=== PATIENT | male | born 1990 | race Caucasian/White ===

== ENCOUNTER 2016-04-29 17:38 | Emergency (ER) | payer MEDICAID ==
[~2016-04-29] VITALS: Ht 165.1 cm; Wt 68.2 kg
[~2016-04-29 17:38] MED LIST: QUET50TA5 PO
[2016-04-29 17:43] VITALS: BP 155/77
[2016-04-29] MEDS ORDERED: OLAN10TA3 PO (18:05)
[2016-04-29] MEDS ORDERED: KETOROLAC 30 MG/1 ML ONE (18:29)
[2016-04-29] MEDS ORDERED: KETOROLAC 30 MG/1 ML IM ONE (18:30)
[2016-04-29 18:51] LABS: HEMOGLOBIN 15.3 g/dL (13.7-18.0)
[2016-04-29 19:03] LABS: BLOOD UREA NITROGEN 11 mg/dL (7-18)
[2016-04-29 19:07] LABS: ASPARTATE AMINO TRANSFERASE 18 U/L (15-37)
[2016-04-29 19:08] LABS: ACETAMINOPHEN < 2 mcg/mL (10-30)
== END 2016-04-29 20:17 | disposition home or self-care (01) ==
LOC: ED 19:52
DX: G44.219 Episodic tension-type headache, not intractable (principal); F20.9 Schizophrenia, unspecified; Z79.899 Other long term (current) drug therapy
CPT/HCPCS: 36415; 70450; 80053; 80307; 80329; 85025; G0480

== ENCOUNTER 2016-06-18 19:54 | Emergency (ER) | payer MEDICAID ==
[~2016-06-18] VITALS: Ht 165.1 cm; Wt 70.5 kg
[~2016-06-18 19:54] MED LIST changes: +OLAN10TA3 PO
[2016-06-18 20:44] LABS: DAU SCREEN DISCLAIMER
[2016-06-18 20:46] LABS: BLOOD UREA NITROGEN 10 mg/dL (7-18)
[2016-06-18 20:48] LABS: ACETAMINOPHEN < 2 mcg/mL (10-30)
[2016-06-18 22:20] VITALS: BP 128/81
== END 2016-06-18 22:25 | disposition home or self-care (01) ==
LOC: ED 22:19
DX: F20.0 Paranoid schizophrenia (principal)
CPT/HCPCS: 36415; 80048; 80307; 80329; 82040; 85025; 99284; G0480

== ENCOUNTER 2016-06-26 09:46 | Observation (INO) | payer MEDICARE, MEDICAID ==
[~2016-06-26] VITALS: Ht 165.1 cm; Wt 69.0 kg
[2016-06-26] MEDS ORDERED: LORazepam 1MG TABLET PO ONE (10:30)
[2016-06-26] MEDS ORDERED: ZIPRASIDONE 20 MG INJ IM ONE (10:30)
[2016-06-26] MEDS ORDERED: LORazepam 1MG TABLET ONE (10:35)
[2016-06-26 10:55] LABS: DAU SCREEN DISCLAIMER
[2016-06-26 11:02] LABS: BLOOD UREA NITROGEN 10 mg/dL (7-18)
[2016-06-26 11:07] LABS: ACETAMINOPHEN < 2 mcg/mL (10-30); ASPARTATE AMINO TRANSFERASE 25 U/L (15-37)
[2016-06-26] MEDS ORDERED: ZIPRASIDONE 20MG CAPSULE ONE (11:11)
[2016-06-26] MEDS ORDERED: HALOPERIDOL 5 MG TABLET PO PRN (12:30)
[2016-06-26] MEDS ORDERED: BENZTROPINE 1 MG TABLET PO PRN (12:30)
[2016-06-26] MEDS ORDERED: HALOPERIDOL 5 MG/ML IM PRN (12:30)
[2016-06-26] MEDS ORDERED: LORazepam 2 MG/ML, 1ML IM PRN (12:30)
[2016-06-26] MEDS ORDERED: LORazepam 1MG TABLET PO PRN (12:30)
[2016-06-26] MEDS ORDERED: ZIPRASIDONE 20 MG INJ IM PRN (12:30)
[2016-06-26 19:46] VITALS: BP 122/64
[2016-06-27 08:02] VITALS: BP 106/69
[2016-06-27 20:00] VITALS: BP 99/64
[2016-06-27] MEDS: ZIPRASIDONE 20MG CAPSULE PO PRN (21:39)
[2016-06-28 07:41] VITALS: BP 100/66
[2016-06-28 19:24] VITALS: BP 134/89
[2016-06-29] MEDS: ZIPRASIDONE 20MG CAPSULE PO PRN ×2 (02:10→21:21)
[2016-06-29 07:39] VITALS: BP 120/65
[2016-06-29 19:46] VITALS: BP 100/65
[2016-06-30 08:07] VITALS: BP 105/72
== END 2016-06-30 16:29 | disposition home or self-care (01) ==
LOC: ED 10:30 → INTOOBSV 11:25 → EDIP 11:25 → 3E 17:26
PROVIDERS: ADMIT Internal Medicine; ATTEND Internal Medicine
DX: R45.851 Suicidal ideations (principal); F20.9 Schizophrenia, unspecified; F23 Brief psychotic disorder; F41.9 Anxiety disorder, unspecified; Z87.891 Personal history of nicotine dependence; Z91.14 Patient's other noncompliance with medication regimen
CPT/HCPCS: 36415; 80053; 80307; 80329; 85025; 99285; G0378; G0480

== ENCOUNTER 2016-07-01 15:27 | Observation (INO) | payer MEDICARE, MEDICAID ==
[~2016-07-01] VITALS: Ht 167.6 cm; Wt 70.9 kg
[2016-07-01 16:26] LABS: DAU SCREEN DISCLAIMER
[2016-07-01 19:18] LABS: BLOOD UREA NITROGEN 8 mg/dL (7-18)
[2016-07-01 19:40] LABS: ACETAMINOPHEN < 2 mcg/mL (10-30)
[2016-07-01] MEDS ORDERED: DIPHENHYDRAMINE 50 MG CAPSULE PO PRN (21:00)
[2016-07-01] MEDS ORDERED: ZIPRASIDONE 20 MG INJ IM PRN (21:00)
[2016-07-01] MEDS ORDERED: LORazepam 1MG TABLET PO PRN (21:00)
[2016-07-01] MEDS ORDERED: ONDANSETRON ODT 4 MG PO PRN (21:00)
[2016-07-01] MEDS ORDERED: QUETIAPINE 25MG TABLET PO SCH (21:00)
[2016-07-01] MEDS ORDERED: BENZTROPINE 1 MG TABLET PO PRN (21:00)
[2016-07-01] MEDS ORDERED: POLYETHYLENE GLYCOL 17 GM PACKET PO PRN (21:00)
[2016-07-01 21:18] VITALS: BP 155/76
[2016-07-01] MEDS: TEMAZEPAM 15 MG CAPSULE PO PRN (21:30)
[2016-07-01] MEDS: QUETIAPINE 25MG TABLET PO SCH (21:33)
[2016-07-01] MEDS: NICOTINE 14MG/24 HR PATCH.TD24 TD SCH (21:54)
[2016-07-02 07:44] VITALS: BP 105/68
[2016-07-02] MEDS: QUETIAPINE 25MG TABLET PO SCH ×2 (08:51→20:02)
[2016-07-02] MEDS ORDERED: SENNA/DOCUSATE TABLET PO SCH (09:00)
[2016-07-02] MEDS ORDERED: QUET25TA PO (15:48)
[2016-07-02 19:22] VITALS: BP 116/70
[2016-07-02] MEDS: NICOTINE 14MG/24 HR PATCH.TD24 TD SCH (20:01)
[2016-07-03 08:12] VITALS: BP 95/58
[2016-07-03] MEDS: SENNA/DOCUSATE TABLET PO SCH (09:20)
[2016-07-03] MEDS: QUETIAPINE 25MG TABLET PO SCH ×2 (09:21→20:57)
[2016-07-03 19:42] VITALS: BP 109/67
[2016-07-03] MEDS: RISPERIDONE 2 MG TABLET PO SCH (20:57)
[2016-07-03] MEDS: NICOTINE 14MG/24 HR PATCH.TD24 TD SCH (20:59)
[2016-07-03] MEDS: TEMAZEPAM 15 MG CAPSULE PO PRN (23:29)
[2016-07-04 08:00] VITALS: BP 108/68
[2016-07-04] MEDS: SENNA/DOCUSATE TABLET PO SCH (09:00)
[2016-07-04] MEDS: QUETIAPINE 25MG TABLET PO SCH ×2 (10:05→20:36)
[2016-07-04 19:39] VITALS: BP 95/60
[2016-07-04] MEDS: RISPERIDONE 2 MG TABLET PO SCH (20:36)
[2016-07-04] MEDS: NICOTINE 14MG/24 HR PATCH.TD24 TD SCH (21:31)
[2016-07-04] MEDS: TEMAZEPAM 15 MG CAPSULE PO PRN (22:57)
[2016-07-05 07:28] VITALS: BP 105/67
[2016-07-05] MEDS: QUETIAPINE 25MG TABLET PO SCH ×2 (09:23→20:38)
[2016-07-05] MEDS: SENNA/DOCUSATE TABLET PO SCH (09:24)
[2016-07-05 20:00] VITALS: BP 100/65
[2016-07-05] MEDS: RISPERIDONE 2 MG TABLET PO SCH (20:38)
[2016-07-05] MEDS: NICOTINE 14MG/24 HR PATCH.TD24 TD SCH (21:15)
[2016-07-06] MEDS: TEMAZEPAM 15 MG CAPSULE PO PRN (03:02)
[2016-07-06 07:47] VITALS: BP 122/80
[2016-07-06] MEDS: SENNA/DOCUSATE TABLET PO SCH (08:35)
[2016-07-06] MEDS: QUETIAPINE 25MG TABLET PO SCH ×2 (08:35→20:24)
[2016-07-06 19:50] VITALS: BP 105/64
[2016-07-06] MEDS: RISPERIDONE 2 MG TABLET PO SCH (20:24)
[2016-07-06] MEDS: NICOTINE 14MG/24 HR PATCH.TD24 TD SCH (20:26)
[2016-07-07] MEDS: TEMAZEPAM 15 MG CAPSULE PO PRN (00:39)
[2016-07-07 07:47] VITALS: BP 118/74
[2016-07-07] MEDS: SENNA/DOCUSATE TABLET PO SCH (08:31)
[2016-07-07] MEDS: QUETIAPINE 25MG TABLET PO SCH ×2 (08:32→20:16)
[2016-07-07 19:13] VITALS: BP 120/72
[2016-07-07] MEDS: RISPERIDONE 2 MG TABLET PO SCH (20:16)
[2016-07-07] MEDS: NICOTINE 14MG/24 HR PATCH.TD24 TD SCH (21:00)
== END 2016-07-07 21:30 ==
LOC: ED 16:25 → EDIP 20:08 → 3E 21:11
PROVIDERS: ADMIT Internal Medicine; ATTEND Internal Medicine
DX: F23 Brief psychotic disorder (principal); R45.851 Suicidal ideations; F20.9 Schizophrenia, unspecified; R44.0 Auditory hallucinations; Z91.19 Patient's noncompliance with other medical treatment and regimen
CPT/HCPCS: 36415; 80048; 80307; 80329; 82040; 85025; 99285; G0378; G0480

== ENCOUNTER 2016-07-16 03:47 | Emergency (ER) | payer MEDICARE, MEDICAID ==
[~2016-07-16] VITALS: Ht 165.1 cm; Wt 71.4 kg
[~2016-07-16 03:47] MED LIST changes: +QUET25TA PO
[2016-07-16 03:49] VITALS: BP 130/79
[2016-07-16] MEDS ORDERED: GEODON (05:05)
[2016-07-16 05:29] LABS: BLOOD UREA NITROGEN 11 mg/dL (7-18)
[2016-07-16 05:30] LABS: ACETAMINOPHEN < 2 mcg/mL (10-30)
[2016-07-16 06:36] LABS: DAU SCREEN DISCLAIMER
== END 2016-07-16 10:46 | disposition home or self-care (01) ==
LOC: ED 04:15
DX: F20.9 Schizophrenia, unspecified (principal)
CPT/HCPCS: 36415; 80048; 80307; 80329; 82040; 85025; 99284; G0480

== ENCOUNTER 2016-07-16 12:05 | Emergency (ER) | payer MEDICARE, MEDICAID ==
[~2016-07-16] VITALS: Ht 165.1 cm; Wt 71.0 kg
[~2016-07-16 12:05] MED LIST changes: +GEODON
[2016-07-16 12:07] VITALS: BP 122/81
[2016-07-16] MEDS ORDERED: QUETIAPINE 100MG TABLET PO ONE (12:30)
== END 2016-07-16 14:44 | disposition home or self-care (01) ==
LOC: ED 14:14
DX: F20.0 Paranoid schizophrenia (principal); R45.851 Suicidal ideations
CPT/HCPCS: 99284

== ENCOUNTER 2016-07-26 12:49 | Emergency (ER) | payer MEDICARE, MEDICAID ==
[~2016-07-26] VITALS: Ht 165.1 cm; Wt 70.4 kg
[2016-07-26 12:51] VITALS: BP 127/77
[2016-07-26 13:43] LABS: DAU SCREEN DISCLAIMER
[2016-07-26 14:14] LABS: ASPARTATE AMINO TRANSFERASE 35 U/L (15-37); BLOOD UREA NITROGEN 8 mg/dL (7-18)
[2016-07-26 14:21] LABS: ACETAMINOPHEN < 2 mcg/mL (10-30)
== END 2016-07-26 14:18 | disposition left against medical advice (07) ==
LOC: ED 14:12
DX: F20.9 Schizophrenia, unspecified (principal); R44.0 Auditory hallucinations
CPT/HCPCS: 36415; 80053; 80307; 80329; 85025; 99284; G0480

== ENCOUNTER 2016-09-29 07:02 | Emergency (ER) | payer MEDICARE, MEDICAID ==
[~2016-09-29] VITALS: Ht 165.1 cm; Wt 65.2 kg
[2016-09-29 07:03] VITALS: BP 134/83
[2016-09-29] MEDS ORDERED: ZIPRASIDONE 20 MG INJ IM ONE ×2 (07:46→08:00)
[2016-09-29 07:49] LABS: HEMATOCRIT 44.6 % (39.2-51.8); HEMOGLOBIN 15.1 g/dL (13.7-18.0); WHITE BLOOD COUNT 8.8 x10^3/uL (3.4-10)
[2016-09-29 07:59] LABS: ACETAMINOPHEN < 2 mcg/mL (10-30); ASPARTATE AMINO TRANSFERASE 13 U/L (15-37); BLOOD UREA NITROGEN 7 mg/dL (7-18)
[2016-09-29 08:43] LABS: DAU SCREEN DISCLAIMER
[2016-09-29] MEDS ORDERED: ZIPRASIDONE 20MG CAPSULE ONE (08:58)
[2016-09-29] MEDS ORDERED: ZIPRASIDONE 20MG CAPSULE PO ONE (09:00)
== END 2016-09-29 10:06 | disposition home or self-care (01) ==
LOC: ED 07:27
DX: F20.1 Disorganized schizophrenia (principal); F15.151 Other stimulant abuse with stimulant-induced psychotic disorder with hallucinations; Z72.89 Other problems related to lifestyle
CPT/HCPCS: 36415; 80053; 80307; 80329; 85025; 99284; G0480

== ENCOUNTER 2016-09-29 12:05 | Emergency (ER) | payer MEDICARE, MEDICAID ==
[~2016-09-29] VITALS: Ht 165.1 cm; Wt 65.9 kg
[2016-09-29 12:10] VITALS: BP 119/78
== END 2016-09-29 12:32 | disposition left against medical advice (07) ==
LOC: ED 12:26
DX: Z53.21 Procedure and treatment not carried out due to patient leaving prior to being seen by health care provider (principal)

== ENCOUNTER 2016-10-06 14:26 | Emergency (ER) | payer MEDICARE, MEDICAID ==
[~2016-10-06] VITALS: Ht 162.6 cm; Wt 64.9 kg
[2016-10-06 14:28] VITALS: BP 116/76
[2016-10-06 15:36] LABS: HEMATOCRIT 44.8 % (39.2-51.8); WHITE BLOOD COUNT 7.3 x10^3/uL (3.4-10)
[2016-10-06 15:42] LABS: DAU SCREEN DISCLAIMER
[2016-10-06 15:45] LABS: BLOOD UREA NITROGEN 13 mg/dL (7-18)
[2016-10-06 15:48] LABS: ASPARTATE AMINO TRANSFERASE 10 U/L (15-37)
[2016-10-06 15:49] LABS: ACETAMINOPHEN < 2 mcg/mL (10-30)
== END 2016-10-06 17:39 | disposition home or self-care (01) ==
LOC: ED 15:41
DX: F20.1 Disorganized schizophrenia (principal); F15.151 Other stimulant abuse with stimulant-induced psychotic disorder with hallucinations
CPT/HCPCS: 36415; 80053; 80307; 80329; 85025; 99284; G0480

== ENCOUNTER 2016-11-21 02:10 | Emergency (ER) | payer MEDICARE, MEDICAID ==
[~2016-11-21] VITALS: Ht 160 cm; Wt 60.0 kg
[2016-11-21 02:40] LABS: HEMATOCRIT 41.9 % (39.2-51.8); HEMOGLOBIN 14.2 g/dL (13.7-18.0); WHITE BLOOD COUNT 6.4 x10^3/uL (3.4-10)
[2016-11-21 02:44] VITALS: BP 146/91
[2016-11-21 02:49] LABS: ACETAMINOPHEN < 2 mcg/mL (10-30); BLOOD UREA NITROGEN 4 mg/dL (7-18)
[2016-11-21 07:22] LABS: DAU SCREEN DISCLAIMER
== END 2016-11-21 08:40 | disposition home or self-care (01) ==
LOC: ED 02:55
DX: F29 Unspecified psychosis not due to a substance or known physiological condition (principal); F20.0 Paranoid schizophrenia; F17.200 Nicotine dependence, unspecified, uncomplicated
CPT/HCPCS: 36415; 80048; 80307; 80329; 82040; 85025; 99284; G0479; G0480

== ENCOUNTER 2016-12-03 02:45 | Emergency (ER) | payer MEDICARE, MEDICAID ==
[~2016-12-03] VITALS: Ht 165.1 cm; Wt 60.4 kg
[2016-12-03 02:46] VITALS: BP 140/91
== END 2016-12-03 03:08 | disposition left against medical advice (07) ==
LOC: ED 02:47
DX: R42 Dizziness and giddiness (principal); Z53.21 Procedure and treatment not carried out due to patient leaving prior to being seen by health care provider

== ENCOUNTER 2016-12-04 16:12 | Emergency (ER) | payer MEDICARE, MEDICAID ==
[~2016-12-04] VITALS: Ht 165.1 cm; Wt 68.2 kg
[2016-12-04 16:17] VITALS: BP 151/83
[2016-12-04 16:42] LABS: HEMATOCRIT 42.6 % (39.2-51.8); HEMOGLOBIN 14.5 g/dL (13.7-18.0); WHITE BLOOD COUNT 5.2 x10^3/uL (3.4-10)
[2016-12-04 16:48] LABS: BLOOD UREA NITROGEN 4 mg/dL (7-18)
== END 2016-12-04 17:39 | disposition home or self-care (01) ==
LOC: ED 16:34
DX: E86.0 Dehydration (principal); F20.9 Schizophrenia, unspecified
CPT/HCPCS: 36415; 71010; 80048; 82040; 85025; 93005; 99285

== ENCOUNTER 2016-12-05 04:19 | Emergency (ER) | payer MEDICARE, MEDICAID ==
[~2016-12-05] VITALS: Ht 165.1 cm; Wt 60.7 kg
[2016-12-05 04:20] VITALS: BP 126/85
[2016-12-05] MEDS ORDERED: QUETIAPINE 100MG TABLET PO ONE (05:30)
[2016-12-05 06:01] LABS: BLOOD UREA NITROGEN 4 mg/dL (7-18)
[2016-12-05 06:05] LABS: ACETAMINOPHEN < 2 mcg/mL (10-30)
[2016-12-05 06:08] LABS: HEMATOCRIT 42.2 % (39.2-51.8); HEMOGLOBIN 14.4 g/dL (13.7-18.0); WHITE BLOOD COUNT 8.3 x10^3/uL (3.4-10)
== END 2016-12-05 08:48 | disposition home or self-care (01) ==
LOC: ED 05:21
DX: F20.9 Schizophrenia, unspecified (principal); F33.9 Major depressive disorder, recurrent, unspecified
CPT/HCPCS: 36415; 80048; 80307; 80329; 82040; 85025; 93005; 99285; G0479; G0480

== ENCOUNTER 2017-01-20 14:55 | Emergency (ER) | payer MEDICARE, MEDICAID ==
[~2017-01-20] VITALS: Ht 165.1 cm; Wt 60.9 kg
[2017-01-20 15:46] LABS: HEMATOCRIT 43.1 % (39.2-51.8); HEMOGLOBIN 14.6 g/dL (13.7-18.0); WHITE BLOOD COUNT 10.1 x10^3/uL (3.4-10)
[2017-01-20 15:54] LABS: BLOOD UREA NITROGEN 11 mg/dL (7-18)
[2017-01-20] MEDS ORDERED: ONDANSETRON ODT 4 MG PO ONE (16:30)
[2017-01-20] MEDS ORDERED: ONDANSETRON ODT 4 MG ONE (16:30)
[2017-01-20 16:46] VITALS: BP 105/66
== END 2017-01-20 17:10 | disposition home or self-care (01) ==
LOC: ED 16:12
DX: R05 Cough (principal); R42 Dizziness and giddiness; R09.81 Nasal congestion; F17.210 Nicotine dependence, cigarettes, uncomplicated; F20.9 Schizophrenia, unspecified; F32.9 Major depressive disorder, single episode, unspecified; Z59.0 Homelessness
CPT/HCPCS: 36415; 71020; 80048; 82040; 85025; 93005; 99285

== ENCOUNTER 2017-01-23 04:21 | Emergency (ER) | payer MEDICARE, MEDICAID ==
[~2017-01-23] VITALS: Ht 165.1 cm; Wt 59.9 kg
[2017-01-23 04:23] VITALS: BP 131/88
== END 2017-01-23 04:49 | disposition left against medical advice (07) ==
LOC: ED 04:43
DX: R10.9 Unspecified abdominal pain (principal); Z53.21 Procedure and treatment not carried out due to patient leaving prior to being seen by health care provider

== ENCOUNTER 2017-02-09 19:20 | Emergency (ER) | payer MEDICARE, MEDICAID ==
[~2017-02-09] VITALS: Ht 172.7 cm; Wt 58.9 kg
[2017-02-09 19:21] VITALS: BP 117/77
[2017-02-09 19:56] LABS: BASOPHILS # (AUTO) 0.03 x10^3/uL (0-0.1); BASOPHILS % (AUTO) 0 % (0-1); EOSINOPHILS # (AUTO) 0.41 x10^3/uL (0-0.4); EOSINOPHILS % (AUTO) 3 % (1-7); LYMPHOCYTES # (AUTO) 2.01 x10^3/uL (1-3.4); LYMPHOCYTES % (AUTO) 14 % (22-44); MD NO; MEAN CORPUSCULAR HGB CONC 34.2 g/dL (33.2-36.2); MEAN CORPUSCULAR VOLUME 90.7 fL (81-97); MEAN PLATELET VOLUME 7.8 fL (7.4-10.4); MONOCYTES # (AUTO) 0.81 x10^3/uL (0.2-0.8); MONOCYTES % (AUTO) 6 % (2-9); NEUTROPHILS # (AUTO) 11.33 x10^3/uL (1.8-6.8); NEUTROPHILS % (AUTO) 78 % (42-75); PLATELET COUNT 264 x10^3/uL (130-400); RED BLOOD COUNT 4.65 x10^6/uL (4.38-5.82); RED CELL DISTRIBUTION WIDTH 13.3 % (9.4-14.8)
[2017-02-09 20:07] LABS: ALBUMIN 3.7 g/dL (3.4-5.0); ANION GAP 5 mmol/L (5-15); CALCIUM 8.5 mg/dL (8.5-10.1); CHLORIDE 107 mmol/L (98-107); CREATININE 0.91 mg/dL (0.7-1.3)
[2017-02-09 20:09] LABS: ACETAMINOPHEN < 2 mcg/mL (10-30); SALICYLATE LEVEL < 1.7 mg/dL (2.8-20.0)
[2017-02-09 20:29] LABS: AMPHETAMINE SCREEN, URINE Positive (Negative); BARBITURATE SCREEN, URINE Negative (Negative); BENZODIAZEPINE SCREEN, URINE Negative (Negative); CANNABINOID SCREEN, URINE Positive (Negative); COCAINE SCREEN, URINE Negative (Negative); METHADONE SCREEN, URINE Negative (Negative); OPIATE SCREEN, URINE Negative (Negative)
== END 2017-02-09 22:12 | disposition home or self-care (01) ==
LOC: ED 20:37
DX: F20.0 Paranoid schizophrenia (principal); F15.20 Other stimulant dependence, uncomplicated; F32.9 Major depressive disorder, single episode, unspecified
CPT/HCPCS: 36415; 80048; 80307; 80329; 82040; 85025; 99284; G0479; G0480

== ENCOUNTER 2017-09-02 19:26 | Observation (INO) | payer MEDICAID, MEDICARE ==
[~2017-09-02] VITALS: Ht 165.1 cm; Wt 62.0 kg
[2017-09-02] MEDS ORDERED: SODIUM CHLORIDE 0.9% 1,000ML IVBOLUS ONE (20:00)
[2017-09-02] MEDS ORDERED: SODIUM CHLORIDE FLUSH 10ML SYR IVF ONE (20:00)
[2017-09-02 20:08] LABS: ALANINE AMINOTRANSFERASE 32 U/L (12-78); ALBUMIN 4.6 g/dL (3.4-5.0); ANION GAP 13 mmol/L (5-15); CALCIUM 8.8 mg/dL (8.5-10.1); CHLORIDE 102 mmol/L (98-107); CREATININE 1.35 mg/dL (0.7-1.3); SALICYLATE LEVEL < 1.7 mg/dL (2.8-20.0)
[2017-09-02 20:10] LABS: ALKALINE PHOSPHATASE 53 U/L (45-117); BILIRUBIN,TOTAL 0.6 mg/dL (0.2-1.0)
[2017-09-02 20:13] LABS: ACETAMINOPHEN < 2 mcg/mL (10-30)
[2017-09-02 20:24] LABS: BASOPHILS # (AUTO) 0.06 x10^3/uL (0-0.1); BASOPHILS % (AUTO) 0 % (0-1); EOSINOPHILS # (AUTO) 0.01 x10^3/uL (0-0.4); EOSINOPHILS % (AUTO) 0 % (1-7); LYMPHOCYTES # (AUTO) 0.93 x10^3/uL (1-3.4); LYMPHOCYTES % (AUTO) 7 % (22-44); MD NO; MEAN CORPUSCULAR HEMOGLOBIN 30.5 pg (27.5-34.5); MEAN CORPUSCULAR HGB CONC 33.8 g/dL (33.2-36.2); MEAN CORPUSCULAR VOLUME 90.1 fL (81-97); MEAN PLATELET VOLUME 7.9 fL (7.4-10.4); MONOCYTES # (AUTO) 1.04 x10^3/uL (0.2-0.8); MONOCYTES % (AUTO) 7 % (2-9); NEUTROPHILS # (AUTO) 11.99 x10^3/uL (1.8-6.8); NEUTROPHILS % (AUTO) 86 % (42-75); PLATELET COUNT 266 x10^3/uL (130-400); RED BLOOD COUNT 4.66 x10^6/uL (4.38-5.82); RED CELL DISTRIBUTION WIDTH 13.4 % (9.4-14.8)
[2017-09-02 20:56] LABS: AMPHETAMINE SCREEN, URINE Positive (Negative); BARBITURATE SCREEN, URINE Negative (Negative); BENZODIAZEPINE SCREEN, URINE Positive (Negative); CANNABINOID SCREEN, URINE Negative (Negative); COCAINE SCREEN, URINE Negative (Negative); METHADONE SCREEN, URINE Negative (Negative); OPIATE SCREEN, URINE Negative (Negative)
[2017-09-02] MEDS ORDERED: ZIPRASIDONE 20MG CAPSULE PO STA (21:16)
[2017-09-02] MEDS ORDERED: ZIPRASIDONE 20MG CAPSULE ONE (21:19)
[2017-09-02] MEDS ORDERED: ACETAMINOPHEN 325 MG TABLET PO PRN (22:00)
[2017-09-02] MEDS ORDERED: LORazepam 2 MG/ML, 1ML IM PRN (22:00)
[2017-09-02] MEDS ORDERED: POTASSIUM CHLORIDE 20 MEQ TAB.ER.PRT PO ONE (22:00)
[2017-09-02] MEDS ORDERED: ONDANSETRON ODT 4 MG PO PRN (22:00)
[2017-09-02] MEDS ORDERED: LORazepam 1MG TABLET PO PRN (22:00)
[2017-09-02 22:28] VITALS: BP 116/76
[2017-09-02] MEDS ORDERED: POTASSIUM CHLORIDE 10 MEQ TABLET.ER ONE ×2 (22:37→22:42)
[2017-09-03 08:15] VITALS: BP 130/77
[2017-09-03] MEDS ORDERED: ZIPRASIDONE 20 MG INJ IM ONE ×2 (08:29→08:30)
[2017-09-03] MEDS ORDERED: BENZTROPINE 1 MG/ML, 2 ML IM PRN (13:00)
[2017-09-03] MEDS: BENZTROPINE 1 MG TABLET PO SCH ×2 (13:20→20:44)
[2017-09-03 19:59] VITALS: BP 109/98
[2017-09-03] MEDS ORDERED: RISPERIDONE 1 MG TABLET ONE (20:25)
[2017-09-03] MEDS: RISPERIDONE 1 MG TABLET PO SCH (20:44)
[2017-09-03] MEDS ORDERED: RISPERIDONE 2 MG TABLET PO SCH (21:00)
[2017-09-04 08:36] VITALS: BP 118/76
[2017-09-04] MEDS: RISPERIDONE 1 MG TABLET PO SCH ×2 (09:00→20:35)
[2017-09-04] MEDS: BENZTROPINE 1 MG TABLET PO SCH ×2 (09:30→20:35)
[2017-09-04] MEDS ORDERED: BENZTROPINE 1 MG TABLET PO PRN (15:00)
[2017-09-04 20:41] VITALS: BP 112/75
[2017-09-05 07:55] VITALS: BP 110/76
[2017-09-05] MEDS: RISPERIDONE 1 MG TABLET PO SCH (10:08)
[2017-09-05] MEDS: BENZTROPINE 1 MG TABLET PO SCH (10:09)
[2017-09-06] MEDS ORDERED: DIVALPROEX 500 MG TAB.ER.24H PO SCH (09:00)
== END 2017-09-05 14:03 ==
LOC: ED 21:17 → EDIP 21:22 → 2N 22:23
PROVIDERS: ADMIT Hospitalist; ATTEND Hospitalist
DX: R45.851 Suicidal ideations (principal); F23 Brief psychotic disorder; F20.0 Paranoid schizophrenia; F31.9 Bipolar disorder, unspecified; F15.159 Other stimulant abuse with stimulant-induced psychotic disorder, unspecified; G24.9 Dystonia, unspecified; Z91.5 Personal history of self-harm; Z79.899 Other long term (current) drug therapy
CPT/HCPCS: 36415; 80053; 80307; 80329; 85025; 93005; 96372; 99285; G0378; J3486; J7030; G0480